=== PATIENT | female | born 1960 | race African-American/Black ===

== ENCOUNTER 2023-07-22 09:19 | Emergency (ER) | payer OTHER ==
[~2023-07-22] VITALS: Ht 167.6 cm; Wt 92.0 kg
[2023-07-22 09:25] VITALS: BP 184/89; PULSE 83; RESP 16; O2SAT 98
== END 2023-07-22 13:45 | disposition left against medical advice (07) ==
LOC: ER 09:19
DX: R05.9 Cough, unspecified (principal); Z53.21 Procedure and treatment not carried out due to patient leaving prior to being seen by health care provider
CPT/HCPCS: 71045

== ENCOUNTER 2023-07-26 14:15 | Emergency (ER) | payer OTHER ==
[~2023-07-26] VITALS: Ht 170.2 cm; Wt 90.0 kg
[2023-07-26 14:46] VITALS: BP 150/69; PULSE 94; RESP 19; TEMP 98.2; O2SAT 97
[2023-07-26] MEDS ORDERED: BENZ100C97 PO (15:46)
== END 2023-07-26 15:53 | disposition home or self-care (01) ==
LOC: ER 14:15
DX: J06.9 Acute upper respiratory infection, unspecified (principal); E11.9 Type 2 diabetes mellitus without complications; F17.210 Nicotine dependence, cigarettes, uncomplicated

== ENCOUNTER 2024-05-09 11:15 | Inpatient (IN) | payer OTHER ==
[~2024-05-09] VITALS: Ht 167.6 cm; Wt 92.0 kg
[~2024-05-09 11:15] MED LIST: BENZ100C97 PO
--- NOTE | 2024-05-09 11:39 | ED.PDOC ---
History of present illness HPI Comments 63 year old female presents to the ED with chief complaint of dizziness and hyperglycemia. Patient reports she was at work this morning experiencing dizziness and near syncopal episodes, so she had tested her blood glucose level, coming back in the 380s. Patient relays that she had then visited armen Sullivan ere her blood glucose was tested again, coming back at 442 and was advised to come to the ED for further evaluation. Patient states she is normally on Metformin, but has not been taking it recently due to having diarrhea as a side effect, but has not informed her PCP regarding this concern. Patient notes she has had these symptoms from time to time, but feels [place] has not provided her any relief in her symptoms regarding the dizziness and near syncopal episodes. Patient denies any chest pain, SOB, N/V/D, headache, fever, or chills. Time Seen by MD: 11:32 Primary Care Provider: DANELLE History of present illness: Nurses Notes, Medications, Allergies Allergies: Coded Allergies: NO KNOWN ALLERGIES (Unverified , 07/22/23) Home Meds Active Scripts Benzonatate (Benzonatate) 100 Mg Cap, 1-2 CAP PO Q4HR, #60 CAP Prov:YESY QUIROGA EDEN PAC 07/26/23 Information Source: Patient Mode of Arrival: Ambulatory Timing: Hours Duration: Since onset Prehospital treatment: None [place]: None History of: Diabetes, Oral hypoglycemic use, Frequent hyperglycemic Modifying factors: Nothing Past Medical History PAST MEDICAL HISTORY: DM Surgical History: Denies all surgeries 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: No Pertinent 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 Family History Family History: Reviewed,noncontributory to illness Social History Smoker: Cigarettes Alcohol: Denies ETOH Use Drugs: Denies Drug Use Lives In: Home Constitutional: denies: chills, diaphoresis, fatigue, fever, malaise, sweats, weakness, others EENTM: denies: blurred vision, double vision, ear bleeding, ear discharge, ear drainage, ear pain, ear ringing, eye pain, eye redness, hearing loss, mouth pain, mouth swelling, nasal discharge, nose bleeding, nose congestion, nose pain, photophobia, tearing, throat pain, throat swelling, voice changes, others Respiratory: denies: cough, hemoptysis, orthopnea, SOB at rest, shortness of breath, SOB with excertion, stridor, wheezing, others Cardiovascular: reports: dizzy spells, others (Near-syncope); denies: chest pain, diaphoresis, Dyspnea on exertion, edema, irregular heart beat, left arm pain, lightheadedness, palpitations, PND, syncope Gastrointestinal: denies: abdomen distended, abdominal pain, blood streaked bowels, constipated, diarrhea, dysphagia, difficulty swallowing, hematemesis, melena, nausea, poor appetite, poor fluid intake, rectal bleeding, rectal pain, vomiting, others Genitourinary: denies: abnormal vagina bleeding, burning, dyspareunia, dysuria, flank pain, frequency, hematuria, incontinence, pain, , vagina discharge, urgency, others Neurological: denies: dizziness, fainting, headache, left sided numbness, left sided weakness, numbness, paresthesia, pre-existing deficit, right sided numbness, right sided weakness, seizure, speech problems, tingling, tremors, weakness, others Musculoskeletal: denies: back pain, gout, joint pain, joint swelling, muscle pain, muscle stiffness, neck pain, others Integumetry: denies: bruises, change in color, change in hair/nails, dryness, laceration, lesions, lumps, rash, wounds, others Allergic/Immunocompromised: denies: Difficulty Healing, Frequent Infections, Hives, Itching, others Hematologic/Lymphatic: denies: anemia, blood clots, easy bleeding, easy bruising, swollen glands, others Endocrine: reports: others (Hyperglycemia); denies: excessive hunger, excessive sweating, excessive thirst, excessive urination, flushing, intolerance to cold, intolerance to heat, unexplained weight gain, unexplained weight loss Psychiatric: denies: anxiety, bipolar disorder, depression, hopeless, panic disorder, schizophrenia, sleepless, suicidal, others All Other Systems: Reviewed and Negative Physical Exam General Appearance: Moderate Distress, Normal HEENT: Normal ENT Inspection, PERRL/EOMI Neck: Full Range of Motion, Non-Tender, Normal, Normal Inspection Respiratory: Chest Non-Tender, Lungs Clear, No Accessory Muscle Use, No Respiratory Distress, Normal Breath Sounds Cardiovascular: No Edema, No JVD, No Murmur, No Gallop, Normal Peripheral Pulses, Regular Rate/Rhythm Breast Exam: Deferred Gastrointestinal: No Organomegaly, Non Tender, No Pulsatile Mass, Normal Bowel Sounds, Soft Genitalia: Deferred Pelvic: Deferred Rectal: Deferred Extremities: No calf tenderness, Normal capillary refill, Normal inspection, Normal range of motion, Non-tender, No pedal edema Musculoskeletal : Apperance: Normal Neurologic: Alert, ampoule inspector II-XII nml as Tested, No Motor Deficits, Normal Affect, Normal Mood, No Sensory Deficits Cerebellar Function: NOT DONE Reflexes: NOT DONE Skin: Dry, Normal Color, Warm Peripheral Pulses: 3+ Radial (R), 3+ Radial (L) Lymphatic: No Adenopathy Was a procedure done? Was a procedure done?: No Differential Diagnosis (DM) Differential Diagnosis: Dehydration, Electrolyte Abnormality X-Ray, Labs, Meds, VS Vital Signs Date Time Temp Pulse Resp B/P (MAP) Pulse Ox O2 Delivery O2 Flow Rate FiO2 05/09/24 11:57 92 05/09/24 11:50 98.0 91 18 128/69 (88) 96 Lab Test 05/09/24 13:04 05/09/24 11:58 05/09/24 11:36 05/09/24 11:35 Range/Units POC Glucose 367 H 426 *H 434 *H 70-106 mg/dl White Blood Count 11.0 H 4.4-10.8 10^3/uL Red Blood Count 6.26 H 4.0-5.20 10^6/uL Hemoglobin 17.6 H 12.2-16.2 g/dL Hematocrit 54.1 H 36.0-46.0 % Mean Corpuscular Volume 86.4 80.0-100.0 fL Mean Corpuscular Hemoglobin 28.2 28.0-32.0 pg Mean Corpuscular Hemoglobin Concent 32.6 32.0-36.0 g/dL Red Cell Distribution Width 14.5 H 11.8-14.3 % Platelet Count 238 140-450 10^3/uL Mean Platelet Volume 9.7 6.9-10.8 fL Neutrophils (%) (Auto) 51.7 37.0-80.0 % Lymphocytes (%) (Auto) 40.8 10.0-50.0 % Monocytes (%) (Auto) 5.5 0.0-12.0 % Eosinophils (%) (Auto) 1.1 0.0-7.0 % Basophils (%) (Auto) 0.9 0.0-2.0 % Neutrophils # (Auto) 5.7 1.6-8.6 10 ^3/uL Lymphocytes # (Auto) 4.5 0.4-5.4 10 ^3/uL Monocytes # (Auto) 0.6 0-1.3 10 ^3/uL Eosinophils # (Auto) 0.1 0-0.8 10 ^3/uL Basophils # (Auto) 0.1 0-0.2 10 ^3/uL Nucleated Red Blood Cells 0.2 % Sodium Level 136 136-145 mmol/L Potassium Level 4.5 3.5-5.1 mmol/L Chloride Level 103 98-107 mmol/L Carbon Dioxide Level 29 20-31 mmol/L Anion Gap 4 L 5-15 Blood Urea Nitrogen 15 9-23 mg/dL Creatinine 0.94 0.550-1.02 mg/dL Glomerular Filtration Rate Calc 67 >90 mL/min BUN/Creatinine Ratio 16.0 10.0-20.0 Serum Glucose 425 *H 74-106 mg/dL Calcium Level 10.1 8.7-10.4 mg/dL Troponin I High Sensitivity 4 </=34 ng/L Current Medications Medications (Trade) Dose Ordered Sig/Roger Route Start Time Stop Time Status Last Admin Insulin Human Regular (InsuLIN R) 10 units ONCE ONCE IV 05/09/24 11:45 05/09/24 11:46 DC 05/09/24 13:13 Chest XR: FINDINGS: Lines and Tubes: None Lungs: Clear Pleura: No effusion. No pneumothorax. Cardiomediastinal contours: Unremarkable Bones: Unremarkable IMPRESSION: No acute disease. Patient alert. Blood sugar elevated. Vitals stable. Ambulating. Establish intravenous access. Was given fluids. Generalized body aches. Was given insulin. Reviewed her previous visit. Explained to the patient. Continue cardiac monitoring. Family insists on not leaving. Did explained to them that she will be transferred by ambulance. Family did not want to go [facility]. Spoke with [facility] physician. [facility] approved [phone]. Images Reviewed?: Images reviewed and evaluated by me Time of 1ST Reevaluation: 12:32 Reevaluation 1ST: Unchanged Patient Education/Counseling: Diagnosis, Treatment Family Education/Counseling: Diagnosis, Treatment Departure 1 Departure Time of Disposition: 13:10 Impression: Primary Impression: Uncontrolled diabetes mellitus Qualified Codes: E13.65 - Other specified diabetes mellitus with hyperglycemia Disposition: ADMITTED INPATIENT Admit to: Med Surg Condition: Guarded Critical Care Note Critical Care Time?: Yes (45 min-critical care time only) Stability Stability form required: No Heart Score Heart Score: Heart Score Response (Comments) Value History N/A 0 EKG N/A 0 Age N/A 0 Risk Factors N/A 0 Troponin N/A 0 Total 0 I personally scribed for ZENIA BURCH MD ([email or web address]) on 05/09/24 at 11:39. Electronically submitted by Leon Rivera ([email or web address]). I personally scribed for ZENIA BURCH MD ([email or web address]) on 05/09/24 at 12:46. Electronically submitted by Leon Rivera ([email or web address]). ZENIA BURCH MD May 09, 2024 11:39
--- NOTE | 2024-05-09 12:10 | DVH ---
CHEST RADIOGRAPH Indication:sob Technique: Single frontal view of the chest was obtained COMPARISON: XY CHEST XRAY 1 VIEW on DOS: 07/22/23 FINDINGS: Lines and Tubes: None Lungs: Clear Pleura: No effusion. No pneumothorax. Cardiomediastinal contours: Unremarkable Bones: Unremarkable IMPRESSION: No acute disease.
[2024-05-09 12:14] LABS: Basophils # (auto) 0.1 10 ^3/uL (0-0.2); Basophils % (auto) 0.9 % (0.0-2.0); Eosinophils # (auto) 0.1 10 ^3/uL (0-0.8); Eosinophils % (auto) 1.1 % (0.0-7.0); Hematocrit 54.1 % (36.0-46.0); Hemoglobin 17.6 g/dL (12.2-16.2); Lymphocytes # (auto) 4.5 10 ^3/uL (0.4-5.4); Lymphocytes % (auto) 40.8 % (10.0-50.0); Mean Corpuscular Hemoglobin 28.2 pg (28.0-32.0); Mean Corpuscular Hgb Conc. 32.6 g/dL (32.0-36.0); Mean Corpuscular Volume 86.4 fL (80.0-100.0); Monocytes # (auto) 0.6 10 ^3/uL (0-1.3); Monocytes % (auto) 5.5 % (0.0-12.0); Neutrophils # (auto) 5.7 10 ^3/uL (1.6-8.6); Neutrophils % (auto) 51.7 % (37.0-80.0); Nucleated Red Blood Cells % 0.2 %; Platelet Count (auto) 238 10^3/uL (140-450); Red Blood Cells 6.26 10^6/uL (4.0-5.20); Red Cell Distribution Width 14.5 % (11.8-14.3)
[2024-05-09 12:26] LABS: Chloride 103 mmol/L (98-107); Potassium 4.5 mmol/L (3.5-5.1); Sodium 136 mmol/L (136-145)
[2024-05-09 12:27] LABS: Anion Gap 4 (5-15); Calcium 10.1 mg/dL (8.7-10.4); Carbon Dioxide 29 mmol/L (20-31)
[2024-05-09 12:32] LABS: Blood Urea Nitrogen 15 mg/dL (9-23)
[2024-05-09 12:40] LABS: Glucose 425 mg/dL (74-106)
[2024-05-09] MEDS: InsuLIN REG 1unit/0.01ml Soln (100units/ml) IV ONE ×2 (13:13→21:18)
[2024-05-09] MEDS: SODIUM CHLORIDE 0.9% 1,000 ML IV ONE ×3 (21:17→23:00)
[2024-05-09 21:32] VITALS: PULSE 86; RESP 16; O2SAT 96
[2024-05-09] MEDS ORDERED: DEXTROSE (50%) 50ML SYRG IV PRN (21:45)
[2024-05-09] MEDS ORDERED: ACETAMINOPHEN 325 MG TAB PO PRN (21:45)
[2024-05-09] MEDS ORDERED: ONDANSETRON HCL 4 MG/2 ML VIAL IV PRN (21:45)
[2024-05-09] MEDS ORDERED: TEMAZEPAM 15 MG CAP PO PRN (21:45)
[2024-05-09] MEDS: ACCU-CHEK COMFORT CURVE STRIP VI SCH (23:16)
[2024-05-09] MEDS: InsuLIN REG 1unit/0.01ml Soln (100units/ml) SC SCH (23:16)
--- NOTE | 2024-05-09 23:55 | DVHHP2 ---
History of Present Illness Reason for Visit: Hyperglycemia History of Present Illness 63-year-old female presents for evaluation of uncontrolled blood sugars. Patient reports a two day history of having elevated blood sugars greater than 300 with associated dizziness. Patient reports not taking her metformin because it has given her diarrhea. Denies abdominal pain, nausea or vomiting. No fever or chills. No other acute complaints reported. Past Medical History Depression and diabetes mellitus Past Surgical History Denies Family History Noncontributory Smoke: <1 pack per day ALCOHOL: none Drugs: None Lives: with Family Review of Systems Review of Systems Review of systems are currently negative otherwise addressed in HPI. Allergies: Coded Allergies: NO KNOWN ALLERGIES (Unverified , 07/22/23) Medications Current Medications Medications Dose Ordered Sig/Roger Route Start Time Stop Time Status Last Admin Dose Admin Fluoxetine HCl 20 mg DAILY PO 05/10/24 10:00 Pantoprazole Sodium 40 mg DAILY@0600 PO 05/10/24 06:00 Diagnostic Test (Pha) 1 strip IQ4HR 05/10/24 00:00 05/09/24 23:16 1 STRIP Insulin Human Regular IQ4HR SC 05/10/24 00:00 Dextrose 50 ml UD PRN IV 05/09/24 21:45 Temazepam 15 mg QHSP PRN PO 05/09/24 21:45 Ondansetron HCl 4 mg Q4HP PRN IV 05/09/24 21:45 Acetaminophen 650 mg Q6HP PRN PO 05/09/24 21:45 Exam Vital Signs Vital Signs Date Time Temp Pulse Resp B/P (MAP) Pulse Ox O2 Delivery O2 Flow Rate FiO2 05/09/24 22:12 86 16 138/75 (96) 95 05/09/24 21:32 Room Air* 0 21 05/09/24 11:50 98.0 Exam Gen: 63-year-old female in no apparent distress. Skin: Warm, dry, normal color and texture, no rash. HEENT: Normocephalic atraumatic, mucous membranes moist and pink. Neck: Cervical and supraclavicular nodes normal without enlargement, trachea is midline, thyroid gland is normal without masses. Pulmonary: Clear to auscultation and percussion bilaterally. Cardiac: Regular rate and rhythm. No murmur Abdomen: Soft, nontender, nondistended, bowel sounds present all 4 quadrants, no guarding, no rigidity, no organomegaly. Extremities: No cyanosis, clubbing, no edema Neuro: Cranial nerves II through XII grossly intact, normal affect and speech, no focal motor deficits. Labs/Xrays ORDERING PHYSICIAN: ZENIA BURCH MD PROCEDURE(s): CXRP - CHEST PORTABLE REASON: sob ORDER NUMBER(s): [id number], ACCESSION NUMBER(s): [id number] CHEST RADIOGRAPH Indication:sob Technique: Single frontal view of the chest was obtained COMPARISON: XY CHEST XRAY 1 VIEW on DOS: 07/22/23 FINDINGS: Lines and Tubes: None Lungs: Clear Pleura: No effusion. No pneumothorax. Cardiomediastinal contours: Unremarkable Bones: Unremarkable IMPRESSION: No acute disease. ATED BY: JOE NYE MD DICTATED DATE/TIME: 05/09/24 1208 Labs Test 05/09/24 23:13 05/09/24 11:58 Range/Units POC Glucose 179 H 70-106 mg/dl White Blood Count 11.0 H 4.4-10.8 10^3/uL Red Blood Count 6.26 H 4.0-5.20 10^6/uL Hemoglobin 17.6 H 12.2-16.2 g/dL Hematocrit 54.1 H 36.0-46.0 % Mean Corpuscular Volume 86.4 80.0-100.0 fL Mean Corpuscular Hemoglobin 28.2 28.0-32.0 pg Mean Corpuscular Hemoglobin Concent 32.6 32.0-36.0 g/dL Red Cell Distribution Width 14.5 H 11.8-14.3 % Platelet Count 238 140-450 10^3/uL Mean Platelet Volume 9.7 6.9-10.8 fL Neutrophils (%) (Auto) 51.7 37.0-80.0 % Lymphocytes (%) (Auto) 40.8 10.0-50.0 % Monocytes (%) (Auto) 5.5 0.0-12.0 % Eosinophils (%) (Auto) 1.1 0.0-7.0 % Basophils (%) (Auto) 0.9 0.0-2.0 % Neutrophils # (Auto) 5.7 1.6-8.6 10 ^3/uL Lymphocytes # (Auto) 4.5 0.4-5.4 10 ^3/uL Monocytes # (Auto) 0.6 0-1.3 10 ^3/uL Eosinophils # (Auto) 0.1 0-0.8 10 ^3/uL Basophils # (Auto) 0.1 0-0.2 10 ^3/uL Nucleated Red Blood Cells 0.2 % Sodium Level 136 136-145 mmol/L Potassium Level 4.5 3.5-5.1 mmol/L Chloride Level 103 98-107 mmol/L Carbon Dioxide Level 29 20-31 mmol/L Anion Gap 4 L 5-15 Blood Urea Nitrogen 15 9-23 mg/dL Creatinine 0.94 0.550-1.02 mg/dL Glomerular Filtration Rate Calc 67 >90 mL/min BUN/Creatinine Ratio 16.0 10.0-20.0 Serum Glucose 425 *H 74-106 mg/dL Calcium Level 10.1 8.7-10.4 mg/dL Troponin I High Sensitivity 4 </=34 ng/L Assessment/Plan Assessment/Plan Assessment Uncontrolled diabetes mellitus Plan Admit the patient to [facility] to the hospitalist Q.4 hour Accu-Cheks Resume home medications Continue treatment per orders. Plan discussed with: Patient My Orders Orders - MALCOM OCHOA Procedure Category Date Status Time Urinalysis LAB 05/09/24 Logged 21:36 Fluoxetine Capsule PHA 05/10/24 In Process (Prozac Capsule) 10:00 Pantoprazole Tablet PHA 05/10/24 In Process (Protonix Tablet) 06:00 Consistent DIET 05/10/24 [facility]Diabetes Breakfast Basic Metabolic Panel LAB 05/10/24 Verified 04:00 Glucose Blood PHA 05/10/24 In Process (Accu-Chek Comfort 00:00 Insulin R (Human) PHA 05/10/24 In Process (Insulin R) 00:00 Dextrose 50% Syringe PHA 05/09/24 In Process 21:45 Admit ADMIT 05/09/24 Transmitted 21:36 Temazepam (Restoril) PHA 05/09/24 In Process 21:45 Ondansetron Hcl PHA 05/09/24 In Process (Zofran) 21:45 Condition: Stable JOSE 05/09/24 In Process 21:36 Acetaminophen Tablet PHA 05/09/24 In Process (Tylenol Tablet) 21:45 Bedrest With Bathroom JOSE 05/09/24 In Process Privileg 21:36 Date of Service: May 09, 2024 Billing Provider: MALCOM OCHOA Common Visit Codes: [id number] INP/OBS CARE (MOD) MALCOM OCHOA May 09, 2024 23:55
[2024-05-10 01:11] VITALS: PULSE 85; RESP 16; O2SAT 96
[2024-05-10] MEDS: PANTOPRAZOLE 40 MG TAB PO SCH (06:28)
[2024-05-10 06:30] LABS: Urine Bacteria None Seen /hpf (None Seen)
[2024-05-10 07:02] LABS: Urine Blood Negative /uL (Negative); Urine Clarity Clear (Clear); Urine Color Yellow (Yellow); Urine Protein, UAD Negative (Negative); Urine Specific Gravity 1.034 (1.001-1.035); Urine Urobilinogen Normal (Negative); Urine WBC 1 /hpf (0 - 5); Urine pH 5.5 (5.0-9.0)
[2024-05-10 07:31] LABS: Anion Gap 7 (5-15); Carbon Dioxide 25 mmol/L (20-31); Chloride 108 mmol/L (98-107); Potassium 3.9 mmol/L (3.5-5.1); Sodium 140 mmol/L (136-145)
[2024-05-10 07:32] LABS: Calcium 9.2 mg/dL (8.7-10.4)
[2024-05-10 07:37] LABS: BUN/Creatinine Ratio 16.9 (10.0-20.0); Blood Urea Nitrogen 12 mg/dL (9-23); Glucose 244 mg/dL (74-106)
[2024-05-10 08:00] VITALS: BP 141/64; PULSE 70; TEMP 97.9
[2024-05-10 08:25] VITALS: RESP 18; O2SAT 93
[2024-05-10] MEDS: FLUoxetine HCL 20 MG CAP PO SCH (09:53)
--- NOTE | 2024-05-11 12:33 | ECG ---
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
--- NOTE | 2024-05-11 13:34 | ECG ---
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
== END 2024-05-10 10:50 | disposition left against medical advice (07) | DRG 639 ==
LOC: ER 11:15 → TELE 21:36
PROVIDERS: ADMIT Nurse Practitioner; ATTEND Nurse Practitioner Acute Care
DX: E11.65 Type 2 diabetes mellitus with hyperglycemia (principal); F17.210 Nicotine dependence, cigarettes, uncomplicated; F32.A Depression, unspecified; Z53.29 Procedure and treatment not carried out because of patient's decision for other reasons
CPT/HCPCS: 36415; 71045; 80048; 81001; 82962; 84484; 85025; G0378; J1815